=== PATIENT | female | born 1960 | race Caucasian/White ===

== ENCOUNTER 2022-07-24 21:41 | Inpatient (IN) | payer OTHER ==
[~2022-07-24] VITALS: Ht 152.4 cm; Wt 70.4 kg
[2022-07-24] MEDS ORDERED: MORPHINE SULFATE 4 MG/ML CPJ (NOT FOR IM USE) IV ONE (22:15)
[2022-07-24] MEDS ORDERED: ONDANSETRON HCL 4MG/2ML INJ IV ONE (22:15)
[2022-07-24] MEDS ORDERED: SODIUM CHLORIDE 0.9% 1,000 ML IV ONE (22:30)
[2022-07-24] MEDS ORDERED: PANTOPRAZOLE SODIUM 40 MG/VIAL IV ONE (22:30)
[2022-07-24] MEDS ORDERED: OCTREOTIDE 1,000 MCG in SODIUM CHLORIDE 0.9% 100 ML IV ONE (22:30)
[2022-07-24] MEDS ORDERED: CEFTRIAXONE 1 G PREMIX 50 ML IV ONE (23:00)
[2022-07-24] MEDS ORDERED: OCTREOTIDE 1,000 MCG in SODIUM CHLORIDE 0.9% 100 ML IV NR (23:00)
[2022-07-24 23:30] LABS: CHLORIDE 111 mEq/L (98-107)
[2022-07-24 23:33] LABS: BASOPHILS % 1.3 % (0.0-2.0); HEMATOCRIT. 32.3 % (36.0-48.0); HEMOGLOBIN. 10.5 g/dL (12.0-16.0); LYMPHOCYTES % 18.7 % (20.0-50.0); MEAN CORPUSCULAR HEMOGLOBIN 31.9 pg (28.0-32.0); MEAN CORPUSCULAR VOLUME 97.7 fL (81.0-99.0); MEAN PLATELET VOLUME 10.6 fl (7.4-10.4); MONOCYTES % 7.8 % (2.0-8.0); NEUTROPHILS % 70.2 % (40.0-76.0); PLATELET 165 x1000/uL (130-400); RED CELL DISTRIBUTION WIDTH 18.9 % (11.6-14.6)
[2022-07-24 23:42] LABS: INR 1.5; PROTHROMBIN TIME 15.7 sec (9.6-11.0)
[2022-07-25] VITALS (12 sets, daily range): BP systolic 97–129; BP diastolic 52–79
[2022-07-25] MEDS ORDERED: CEFTRIAXONE 1 G PREMIX 50 ML IV NR (01:15)
[2022-07-25 01:46] LABS: HEMATOCRIT 25.3 % (36.0-48.0); HEMOGLOBIN 8.3 g/dL (12.0-16.0)
[2022-07-25 08:15] LABS: HEMATOCRIT 33.9 % (36.0-48.0); HEMOGLOBIN 11.2 g/dL (12.0-16.0)
[2022-07-25 08:17] LABS: CLARITY URINE CLEAR (CLEAR); COLOR URINE DARK YELLOW (YELLOW); KETONES URINE TRACE (NEGATIVE); LEUKOCYTE ESTERASE URINE TRACE (NEGATIVE); NITRITE URINE NEGATIVE (NEGATIVE); OCCULT BLOOD URINE 1+ (NEGATIVE); PH URINE 5.5 (4.5-8.0); PROTEIN URINE NEGATIVE (NEGATIVE); SPECIFIC GRAVITY URINE 1.028 (1.005-1.030); UROBILINOGEN URINE 0.2 E.U./dL (0.2-1.0)
[2022-07-25] MEDS: PANTOPRAZOLE SODIUM 40 MG/VIAL IV SCH ×2 (08:20→14:24)
[2022-07-25] MEDS: SODIUM CHLORIDE 0.9% 1,000 ML IV SCH ×2 (08:20→14:26)
[2022-07-25] MEDS ORDERED: PHYTONADIONE 10MG/ML AMP SUBCUT NR (10:26)
[2022-07-25] MEDS ORDERED: OCTREOTIDE 1,000 MCG in SODIUM CHLORIDE 0.9% 98 ML IV SCH (10:30)
[2022-07-25] MEDS ORDERED: PROPOFOL 200MG/20ML VIAL IV ONE ×2 (11:40→12:09)
[2022-07-25] MEDS ORDERED: DIPHENHYDRAMINE 50MG/ML VIAL IV PRN (13:45)
[2022-07-25] MEDS ORDERED: ONDANSETRON HCL 4MG/2ML INJ IV PRN (13:45)
[2022-07-25] MEDS ORDERED: CEFTRIAXONE 1,000 MG in DEXTROSE 5% WATER 50 ML IV SCH (14:00)
[2022-07-25] MEDS: OCTREOTIDE 1,000 MCG in SODIUM CHLORIDE 0.9% 98 ML IV SCH (15:08)
[2022-07-25 16:20] LABS: HEMATOCRIT. 36.7 % (36.0-48.0); HEMOGLOBIN. 11.9 g/dL (12.0-16.0); MEAN CORPUSCULAR HEMOGLOBIN 31.1 pg (28.0-32.0); MEAN CORPUSCULAR VOLUME 95.6 fL (81.0-99.0); MEAN PLATELET VOLUME 10.5 fl (7.4-10.4); PLATELET 78 x1000/uL (130-400); RED BLOOD CELL COUNT 3.84 mill/uL (4.2-5.4); RED CELL DISTRIBUTION WIDTH 18.1 % (11.6-14.6)
[2022-07-25 16:34] LABS: INR 1.4; PROTHROMBIN TIME 14.3 sec (9.6-11.0)
[2022-07-25 16:39] LABS: CHLORIDE 111 mEq/L (98-107)
[2022-07-25 16:44] LABS: TOTAL IRON BINDING CAPACITY 406 ug/dL (250-450)
[2022-07-25 17:15] LABS: FOLIC ACID (FOLATE) SERUM 14.5 ng/mL (>5.38)
[2022-07-25] MEDS: SUCRALFATE 1 G/10 ML UDC PO SCH ×2 (17:50→23:24)
[2022-07-25] MEDS ORDERED: PROP10TA10 PO (17:54)
[2022-07-25] MEDS ORDERED: MULT-1146 MT (17:55)
[2022-07-25] MEDS ORDERED: IRON15TA3 MT (17:55)
[2022-07-25 18:36] LABS: PLATELET ESTIMATE DECREASED
[2022-07-25 20:13] LABS: HEMATOCRIT 32.8 % (36.0-48.0); HEMOGLOBIN 10.9 g/dL (12.0-16.0)
[2022-07-26] VITALS (11 sets, daily range): BP systolic 94–138; BP diastolic 43–69
[2022-07-26 01:35] LABS: HEMATOCRIT 34.2 % (36.0-48.0); HEMOGLOBIN 11.2 g/dL (12.0-16.0)
[2022-07-26] MEDS: SODIUM CHLORIDE 0.9% 1,000 ML IV SCH ×2 (03:11→14:00)
[2022-07-26] MEDS: SUCRALFATE 1 G/10 ML UDC PO SCH ×3 (05:08→15:30)
[2022-07-26 06:28] LABS: CHLORIDE 112 mEq/L (98-107)
[2022-07-26 07:16] LABS: BASOPHILS % 1.2 % (0.0-2.0); LYMPHOCYTES % 18.9 % (20.0-50.0); MEAN CORPUSCULAR VOLUME 94.1 fL (81.0-99.0); MONOCYTES % 7.7 % (2.0-8.0); NEUTROPHILS % 68.2 % (40.0-76.0); PLATELET 56 x1000/uL (130-400); RED BLOOD CELL COUNT 3.25 mill/uL (4.2-5.4); RED CELL DISTRIBUTION WIDTH 17.6 % (11.6-14.6)
[2022-07-26 07:22] LABS: HEMATOCRIT. 30.6 % (36.0-48.0); HEMOGLOBIN. 10.1 g/dL (12.0-16.0)
[2022-07-26] MEDS: OCTREOTIDE 1,000 MCG in SODIUM CHLORIDE 0.9% 98 ML IV SCH (11:04)
[2022-07-26] MEDS: PHYTONADIONE 10MG/ML AMP SUBCUT SCH (11:04)
[2022-07-26] MEDS: PANTOPRAZOLE SODIUM 40 MG/VIAL IV SCH ×2 (11:04→22:06)
[2022-07-26 15:29] LABS: HEMATOCRIT 30.5 % (36.0-48.0); HEMOGLOBIN 10.1 g/dL (12.0-16.0)
[2022-07-27] VITALS (13 sets, daily range): BP systolic 118–168; BP diastolic 43–77
[2022-07-27] MEDS: SODIUM CHLORIDE 0.9% 1,000 ML IV SCH ×2 (00:18→13:18)
[2022-07-27] MEDS: SUCRALFATE 1 G/10 ML UDC PO SCH ×5 (00:21→23:39)
[2022-07-27] MEDS: OCTREOTIDE 1,000 MCG in SODIUM CHLORIDE 0.9% 98 ML IV SCH (05:14)
[2022-07-27 07:57] LABS: BASOPHILS % 1.2 % (0.0-2.0); EOSINOPHILS % 3.4 % (0.0-5.0); HEMATOCRIT. 31.6 % (36.0-48.0); HEMOGLOBIN. 10.4 g/dL (12.0-16.0); LYMPHOCYTES % 13.2 % (20.0-50.0); MEAN CORPUSCULAR HEMOGLOBIN 31.1 pg (28.0-32.0); MEAN CORPUSCULAR VOLUME 94.6 fL (81.0-99.0); MEAN PLATELET VOLUME 10.2 fl (7.4-10.4); MONOCYTES % 6.8 % (2.0-8.0); NEUTROPHILS % 75.4 % (40.0-76.0); PLATELET 52 x1000/uL (130-400); RED BLOOD CELL COUNT 3.34 mill/uL (4.2-5.4); RED CELL DISTRIBUTION WIDTH 17.4 % (11.6-14.6)
[2022-07-27 08:18] LABS: CHLORIDE 110 mEq/L (98-107)
[2022-07-27] MEDS: PANTOPRAZOLE SODIUM 40 MG/VIAL IV SCH ×2 (08:51→20:09)
[2022-07-27] MEDS: PHYTONADIONE 10MG/ML AMP SUBCUT SCH (08:51)
[2022-07-27] MEDS ORDERED: MAGNESIUM 2 G PREMIX 50 ML IV NR (12:30)
[2022-07-27] MEDS ORDERED: HYDRALAZINE 20MG/ML VIAL IV PRN (12:45)
[2022-07-28] VITALS (8 sets, daily range): BP systolic 131–161; BP diastolic 56–79
[2022-07-28] MEDS: SUCRALFATE 1 G/10 ML UDC PO SCH ×2 (05:03→11:11)
[2022-07-28 07:05] LABS: BASOPHILS % 1.7 % (0.0-2.0); EOSINOPHILS % 3.9 % (0.0-5.0); HEMATOCRIT. 30.1 % (36.0-48.0); HEMOGLOBIN. 10.2 g/dL (12.0-16.0); MEAN CORPUSCULAR HEMOGLOBIN 31.6 pg (28.0-32.0); MEAN CORPUSCULAR VOLUME 93.1 fL (81.0-99.0); MONOCYTES % 8.2 % (2.0-8.0); NEUTROPHILS % 73.2 % (40.0-76.0); PLATELET 54 x1000/uL (130-400); RED BLOOD CELL COUNT 3.24 mill/uL (4.2-5.4); RED CELL DISTRIBUTION WIDTH 17.1 % (11.6-14.6)
[2022-07-28 07:07] LABS: CHLORIDE 110 mEq/L (98-107)
[2022-07-28] MEDS: PANTOPRAZOLE SODIUM 40 MG/VIAL IV SCH (08:40)
[2022-07-28] MEDS ORDERED: POTASSIUM CHLORIDE 20MEQ TABLET SR PO SCH (11:00)
== END 2022-07-28 18:12 | disposition home or self-care (01) | DRG 432 ==
LOC: ER 21:41 → 5EST 07-25 01:11 → EDBEDREQSVC 07-25 09:03
PROVIDERS: ADMIT Internal Medicine; ATTEND Internal Medicine
PROC: 30233N1 Transfusion of Nonautologous Red Blood Cells into Peripheral Vein, Percutaneous Approach (ICD-10-PCS; 2022-07-25)
PROC: 30233K1 Transfusion of Nonautologous Frozen Plasma into Peripheral Vein, Percutaneous Approach (ICD-10-PCS; 2022-07-25)
PROC: 06L38CZ Occlusion of Esophageal Vein with Extraluminal Device, Via Natural or Artificial Opening Endoscopic (ICD-10-PCS; principal; 2022-07-27)
PROC: 3E0G8GC Introduction of Other Therapeutic Substance into Upper GI, Via Natural or Artificial Opening Endoscopic (ICD-10-PCS; 2022-07-27)
DX: K70.31 Alcoholic cirrhosis of liver with ascites (principal); E43 Unspecified severe protein-calorie malnutrition; J96.01 Acute respiratory failure with hypoxia; R57.8 Other shock; I85.11 Secondary esophageal varices with bleeding; K25.4 Chronic or unspecified gastric ulcer with hemorrhage; D68.9 Coagulation defect, unspecified; K76.6 Portal hypertension; J90 Pleural effusion, not elsewhere classified; K80.20 Calculus of gallbladder without cholecystitis without obstruction; K52.9 Noninfective gastroenteritis and colitis, unspecified; Z20.822 Contact with and (suspected) exposure to COVID-19; I86.4 Gastric varices; K57.90 Diverticulosis of intestine, part unspecified, without perforation or abscess without bleeding; K31.89 Other diseases of stomach and duodenum; D50.0 Iron deficiency anemia secondary to blood loss (chronic); D69.6 Thrombocytopenia, unspecified; Z87.891 Personal history of nicotine dependence; Z68.30 Body mass index [BMI] 30.0-30.9, adult
CPT/HCPCS: 36415; 71045; 74176; 80048; 80053; 80076; 80320; 81003; 82140; 82248; 82607; 82728; 82746; 83540; 83550; 83735; 83880; 84484; 85014; 85018; 85025; 85044; 86850; 86870; 86900; 86920; 86927; 87426; 93005; 99285; C9113; C9803; J0360; J0696; J2270; J2354; J2405; J2704; J3430; J3475; J7030; J7050; J7060; P9016; P9017; G0480

== ENCOUNTER 2024-03-16 17:57 | Emergency (ER) | payer OTHER ==
[~2024-03-16] VITALS: Ht 152.4 cm; Wt 55.0 kg
[~2024-03-16 17:57] MED LIST: IRON15TA3 MT; MULT-1146 MT; PROP10TA10 PO
[2024-03-16 18:09] VITALS: TEMP 98.3
[2024-03-16 19:00] LABS: CHLORIDE 102 mEq/L (98-107); POTASSIUM 3.3 mEq/L (3.5-5.1); SODIUM 134 mEq/L (136-145)
[2024-03-16 19:01] LABS: CARBON DIOXIDE 22 mEq/L (21-32)
[2024-03-16 19:02] LABS: CALCIUM 8.5 mg/dL (8.7-10.4)
[2024-03-16 19:06] LABS: CREATININE 0.6 mg/dL (0.6-1.0)
[2024-03-16 19:07] LABS: GLUCOSE 106 mg/dL (70-105); UREA NITROGEN BLOOD 6 mg/dL (9-23)
[2024-03-16 19:08] LABS: TROPONIN I HIGH SENSITIVITY 6 ng/L (3.0-34)
[2024-03-16 19:09] LABS: BASOPHILS % 2.3 % (0.0-2.0); EOSINOPHILS % 3.9 % (0.0-5.0); HEMATOCRIT. 48.1 % (36.0-48.0); HEMOGLOBIN. 16.3 g/dL (12.0-16.0); LYMPHOCYTES % 13.6 % (20.0-50.0); MEAN CORPUSCULAR HEMOGLOBIN 32.3 pg (28.0-32.0); MEAN CORPUSCULAR HGB CONC 33.9 g/dL (31.0-37.0); MEAN CORPUSCULAR VOLUME 95.2 fL (81.0-99.0); MEAN PLATELET VOLUME 9.9 fl (7.4-10.4); MONOCYTES % 6.7 % (2.0-8.0); NEUTROPHILS % 73.5 % (40.0-76.0); PLATELET 87 x1000/uL (130-400); RED BLOOD CELL COUNT 5.05 mill/uL (4.2-5.4); RED CELL DISTRIBUTION WIDTH 18.1 % (11.6-14.6); WHITE BLOOD COUNT 5.6 x1000/uL (4.5-11.0)
[2024-03-16] MEDS ORDERED: IPRATROPIUM BROMIDE (0.02%) 0.5MG/2.5ML NEB HHN STA (19:59)
[2024-03-16] MEDS ORDERED: ALBUTEROL (0.083%) 2.5MG/3ML NEB HHN STA (19:59)
[2024-03-16] MEDS ORDERED: DEXAMETHASONE 4MG TABLET PO ONE (20:00)
[2024-03-16 22:55] VITALS: PULSE 82; RESP 18; O2SAT 97
[2024-03-16] MEDS: IPRATROPIUM BROMIDE (0.02%) 0.5MG/2.5ML NEB HHN NR (23:03)
[2024-03-16] MEDS: ALBUTEROL (0.083%) 2.5MG/3ML NEB HHN NR (23:03)
[2024-03-17] MEDS: DEXAMETHASONE 2MG TABLET PO NR (00:51)
[2024-03-17 00:57] VITALS: BP 146/75; PULSE 61; RESP 20
== END 2024-03-17 00:59 | disposition home or self-care (01) ==
LOC: ER 17:57
DX: J44.1 Chronic obstructive pulmonary disease with (acute) exacerbation (principal); K92.2 Gastrointestinal hemorrhage, unspecified
CPT/HCPCS: 99285; 71045; 80048; 85025; 84484; 36415; 93005; 94644; J8540

== ENCOUNTER 2024-09-11 20:40 | Emergency (ER) | payer OTHER ==
[~2024-09-11] VITALS: Ht 165.1 cm; Wt 68.0 kg
[2024-09-11 20:49] VITALS: BP 109/73; PULSE 74; RESP 18; TEMP 98.2; O2SAT 96
== END 2024-09-12 00:33 | disposition home or self-care (01) ==
LOC: ER 20:40
DX: F10.129 Alcohol abuse with intoxication, unspecified (principal); Y90.9 Presence of alcohol in blood, level not specified
CPT/HCPCS: 99283

== ENCOUNTER 2025-04-24 10:07 | Emergency (ER) | payer OTHER ==
[~2025-04-24] VITALS: Ht 154.9 cm; Wt 54.0 kg
[2025-04-24 10:12] VITALS: O2SAT 98
[2025-04-24] MEDS: ACETAMINOPHEN 325MG TABLET PO ONE (11:59)
[2025-04-24] MEDS ORDERED: ACET-2708 MT (12:27)
[2025-04-24 13:16] VITALS: BP 99/69; PULSE 73; RESP 18; TEMP 36.7; O2SAT 99
== END 2025-04-24 13:17 | disposition home or self-care (01) ==
LOC: ER 10:40
DX: S52.352A Displaced comminuted fracture of shaft of radius, left arm, initial encounter for closed fracture (principal); I10 Essential (primary) hypertension; Z79.899 Other long term (current) drug therapy; W01.0XXA Fall on same level from slipping, tripping and stumbling without subsequent striking against object, initial encounter; Y93.89 Activity, other specified; Y92.89 Other specified places as the place of occurrence of the external cause; Y99.8 Other external cause status
CPT/HCPCS: 99284; 73110; 73130; 29125; A6449